=== PATIENT | female | born 1995 | race Caucasian/White ===

== ENCOUNTER 2024-12-29 17:07 | Outpatient (CLI) | payer OTHER | END 2024-12-29 17:58 | disposition home or self-care (01) | LOC: NST 17:07 | PROVIDERS: ATTEND Obstetrics & Gynecology | DX: Z34.83 Encounter for supervision of other normal pregnancy, third trimester (principal) ==

== ENCOUNTER 2025-01-01 11:02 | Outpatient (CLI) | payer OTHER | END 2025-01-01 11:53 | disposition home or self-care (01) | LOC: NST 11:02 | PROVIDERS: ATTEND Obstetrics & Gynecology Gynecology | DX: Z3A.39 39 weeks gestation of pregnancy (principal) ==